=== PATIENT | female | born 1945 | race Caucasian/White ===

== ENCOUNTER 2017-12-15 15:53 | Outpatient (CLI) | payer MEDICARE | END 2017-12-15 15:54 | disposition home or self-care (01) | LOC: BICMAMMO 15:53 | PROVIDERS: ATTEND Family Medicine | DX: Z12.31 Encounter for screening mammogram for malignant neoplasm of breast (principal); Z85.528 Personal history of other malignant neoplasm of kidney | CPT/HCPCS: 77063; 77067 ==

== ENCOUNTER 2018-07-28 13:38 | Outpatient (CLI) | payer MEDICARE ==
--- NOTE | 2018-07-28 15:05 | RAD ---
TWO VIEWS OF THE CHEST 07/28/18 COMPARISON: 06/14/17 HISTORY: Short of breath. FINDINGS: Numerous postoperative clips are noted in the upper abdomen, stable. Stable lateral left sided old ri b fractures are present. There is no pneumothorax or pleural fluid and no focal consolidation or alve olar edema. There is a small stable nodule in the lateral aspect of the right lung measuring in the 5 -6 mm range, stable. IMPRESSION: Stable appearance of the chest - no acute findings. POS: [facility]
== END 2018-07-28 13:39 | disposition home or self-care (01) ==
LOC: RAD 13:38
PROVIDERS: ATTEND Internal Medicine Critical Care Medicine
DX: R06.00 Dyspnea, unspecified (principal)
CPT/HCPCS: 71045

== ENCOUNTER 2018-12-10 11:30 | Emergency (ER) | payer MEDICARE ==
[2018-12-10 12:20] LABS: #Basophils 0.1 thou/uL (0.0-0.2); #Eosinphils 0.2 thou/uL (0.0-0.7); #Lymphocytes 1.3 thou/uL (1.20-3.40); #Monocytes 0.8 thou/uL (0.11-0.59); %Basophils 1.5 % (0.0-1.0); %Eosinophils 3.2 % (0.0-10.0); %Lymphocytes 24.3 % (21.0-51.0); %Monocytes 14.9 % (0.0-10.0); Mean Corpuscular HGB CONC 33.1 g/dL (32.0-36.0); Mean Corpuscular Hemoglobin 31.9 pg (27.0-31.0); Mean Corpuscular Volume 96.3 fL (78.0-98.0); Mean Platelet Volume 9.1 fL (7.4-10.4); Platelet Count 177 thou/uL (130-400); Red Blood Cell (RBC) Count 4.39 mill/uL (4.20-5.40); White Blood Cell (WBC) Count 5.3 thou/uL (4.8-10.8)
[2018-12-10 12:41] LABS: ALT (SGPT) 21 U/L (8-55); AST (SGOT) 43 U/L (5-34); Albumin 3.7 g/dL (3.4-4.8); Alkaline Phosphatase 72 U/L (40-150); Anion Gap 12 mmol/L (10-20); BUN (Urea Nitrogen) 14 mg/dL (9.8-20.1); Bilirubin, Total 0.4 mg/dL (0.2-1.2); Calc. Creatinine Clearance 0 mL/min (70-130); Calcium 9.2 mg/dL (7.8-10.44); Carbon Dioxide 27 mmol/L (23-31); Chloride 100 mmol/L (98-107); Estimated GFR-MDRD 33; Glucose 97 mg/dL (83-110); Potassium 3.3 mmol/L (3.5-5.1); Protein, Total 6.7 g/dL (6.0-8.3); Sodium 136 mmol/L (136-145)
[2018-12-10] MEDS ORDERED: methylPREDNISolone Sod Succ/PF 125 MG/2 ML VIAL ONE (13:06)
[2018-12-10] MEDS ORDERED: Pot Chloride/Pot Bicarb/Cit Ac 25 mEq Effervescent Tablet ONE (13:57)
[2018-12-10] MEDS ORDERED: Potassium Bicarbonate/Cit Ac 25 MEQ TAB PO SCH (14:00)
[2018-12-10] MEDS ORDERED: methylPREDNISolone Sod Succ/PF 125 MG/2 ML VIAL IVP SCH (14:00)
--- NOTE | 2018-12-10 14:41 | RAD ---
CHEST 2 VIEWS: Date: 12/10/18 HISTORY: Cough. COMPARISON: 06/14/17 study. FINDINGS: Heart size is upper limits of normal. Aorta is tortuous. The lungs are clear of infiltrates. Old left rib fractures are present. There are arthritic changes of the spine. IMPRESSION: No active intrathoracic disease. Stable chest. POS: [facility]
== END 2018-12-10 14:42 | disposition home or self-care (01) ==
LOC: ERS 11:30
DX: R05 Cough (principal); I10 Essential (primary) hypertension; F41.9 Anxiety disorder, unspecified
CPT/HCPCS: 36415; 71046; 80053; 83880; 84484; 85025; 87804; 93005; 94644; 96374; J2930; J7620

== ENCOUNTER 2019-04-04 11:49 | Outpatient (CLI) | payer MEDICARE ==
--- NOTE | 2019-04-04 15:13 | MMO ---
Bilateral MAMMO Bilat Screen [facility]. CLINICAL HISTORY: Patient is 74 years old and is seen for screening. The patient has no family history of breast cancer. The patient has a history of kidney cancer in 1977. The patient has a history of right Excisional Biopsy in ?1988 - benign. VIEWS: The views performed were: bilateral craniocaudal with tomosynthesis and bilateral mediolateral oblique with tomosynthesis. FILMS COMPARED: The present examination has been compared to prior imaging studies performed at [facility] on 06/20/2014 and 12/15/2017, and at [facility] on 02/24/2012 and 03/22/2013. MAMMOGRAM FINDINGS: There are scattered fibroglandular densities. There are no suspicious masses, calcifications or areas of architectural distortion. There are benign appearing calcifications in both breasts. There are no suspicious masses, suspicious calcifications, or new areas of architectural distortion. IMPRESSION: THERE IS NO MAMMOGRAPHIC EVIDENCE OF MALIGNANCY. A ROUTINE FOLLOW-UP MAMMOGRAM IN 1 YEAR IS RECOMMENDED. THE RESULTS OF THIS EXAM WERE SENT TO THE PATIENT. ACR BI-RADS Category 2 - Benign finding MAMMOGRAPHY NOTE: 1. A negative mammogram report should not delay a biopsy if a dominant of clinically suspicious mass is present. 2. Approximately 10% to 15% of breast cancers are not detected by mammography. 3. Adenosis and dense breasts may obscure an underlying neoplasm.
== END 2019-04-04 11:50 | disposition home or self-care (01) ==
LOC: BICMAMMO 11:49
PROVIDERS: ATTEND Family Medicine
DX: Z12.31 Encounter for screening mammogram for malignant neoplasm of breast (principal); Z85.528 Personal history of other malignant neoplasm of kidney
CPT/HCPCS: 77063; 77067

== ENCOUNTER 2020-01-07 12:41 | Emergency (ER) | payer MEDICARE ==
[2020-01-07 13:06] LABS: #Basophils 0.1 thou/uL (0.0-0.2); #Eosinphils 0.4 thou/uL (0.0-0.7); #Lymphocytes 3.7 thou/uL (1.20-3.40); #Monocytes 0.8 thou/uL (0.11-0.59); #Neutrophils 5.4 thou/uL (1.40-6.50); %Eosinophils 4.2 % (0.0-10.0); %Lymphocytes 35.9 % (21.0-51.0); %Monocytes 7.4 % (0.0-10.0); %Neutrophils 51.6 % (42.0-75.0); Mean Corpuscular HGB CONC 34.4 g/dL (32.0-36.0); Mean Corpuscular Hemoglobin 32.1 pg (27.0-31.0); Mean Corpuscular Volume 93.4 fL (78.0-98.0); Mean Platelet Volume 9.8 fL (7.4-10.4); Platelet Count 214 thou/uL (130-400); RBC Distribution Width 12.5 % (11.5-14.5); Red Blood Cell (RBC) Count 4.06 mill/uL (4.20-5.40); White Blood Cell (WBC) Count 10.4 thou/uL (4.8-10.8)
[2020-01-07 13:19] LABS: Bilirubin Negative (Negative); Blood, Urine Negative (Negative); Glucose, Urine (Dipstick) Negative (Negative); Leukocyte Trace (Negative); Nitrite Negative (Negative); Protein, Urine (Dipstick) Negative (Neg-Trace); Urobilinogen 0.2 mg/dL (Less than 2)
[2020-01-07 13:20] LABS: Bacteria/HPF 3+ HPF (None Seen); Clarity Clear (Clear); RBC/HPF 0-3 HPF (0-3)
[2020-01-07 13:32] LABS: ALT (SGPT) 8 U/L (8-55); AST (SGOT) 14 U/L (5-34); Alkaline Phosphatase 88 U/L (40-110); Anion Gap 14 mmol/L (10-20); BUN (Urea Nitrogen) 22 mg/dL (9.8-20.1); Bilirubin, Total 0.3 mg/dL (0.2-1.2); Calc. Creatinine Clearance 0 mL/min (70-130); Calcium 9.1 mg/dL (7.8-10.44); Carbon Dioxide 29 mmol/L (23-31); Chloride 98 mmol/L (98-107); Estimated GFR-MDRD 34; Globulin 2.8 g/dL (2.4-3.5); Glucose 98 mg/dL (83-110); Lipase 28 U/L (8-78); Potassium 3.1 mmol/L (3.5-5.1); Protein, Total 6.8 g/dL (6.0-8.3); Sodium 138 mmol/L (136-145)
[2020-01-07 13:46] LABS: CK (CPK) 75 U/L (29-168)
--- NOTE | 2020-01-07 13:52 | RAD ---
Portable chest: HISTORY: Dyspnea COMPARISON: 07/28/2018 FINDINGS: Lung davis are clear. Heart and mediastinum appear unremarkable. Vascularity is normal. Visualized osseous structures unremarkable. Old left-sided rib fractures again noted. IMPRESSION: No acute finding
== END 2020-01-07 15:51 | disposition home or self-care (01) ==
LOC: ERS 12:41
DX: E87.6 Hypokalemia (principal); I10 Essential (primary) hypertension; M19.90 Unspecified osteoarthritis, unspecified site; Z79.899 Other long term (current) drug therapy
CPT/HCPCS: 36415; 71045; 80053; 81003; 81015; 82550; 83690; 83880; 84484; 85025; 93005; 94640; J7620

== ENCOUNTER 2020-10-17 13:55 | Outpatient (CLI) | payer MEDICARE ==
--- NOTE | 2020-10-17 16:04 | MMO ---
Bilateral MAMMO Bilat Screen [facility]. CLINICAL HISTORY: Patient is 75 years old and is seen for screening. The patient has no family history of breast cancer. The patient has a history of kidney cancer in 1977. The patient has a history of right Excisional Biopsy in ?1988 - benign. VIEWS: The views performed were: right mediolateral oblique. FILMS COMPARED: The present examination has been compared to prior imaging studies performed at [facility] on 06/20/2014, 12/15/2017 and 04/04/2019, and at [facility] on 03/22/2013. This study has been interpreted with the assistance of computer-aided detection. MAMMOGRAM FINDINGS: There are scattered fibroglandular densities. Finding 1: There are stable benign appearing calcifications seen in both breasts. Finding 2: There are stable benign appearing densities seen in both breasts. There are no suspicious masses, suspicious calcifications, or new areas of architectural distortion. IMPRESSION: THERE IS NO MAMMOGRAPHIC EVIDENCE OF MALIGNANCY. A ROUTINE FOLLOW-UP MAMMOGRAM IN 1 YEAR IS RECOMMENDED. THE RESULTS OF THIS EXAM WERE SENT TO THE PATIENT. ACR BI-RADS Category 2 - Benign finding MAMMOGRAPHY NOTE: 1. A negative mammogram report should not delay a biopsy if a dominant of clinically suspicious mass is present. 2. Approximately 10% to 15% of breast cancers are not detected by mammography. 3. Adenosis and dense breasts may obscure an underlying neoplasm. Reported by: MARY HARGROVE MD Electonically Signed: [id number]
== END 2020-10-17 13:56 | disposition home or self-care (01) ==
LOC: BICMAMMO 13:55
PROVIDERS: ATTEND Family Medicine
DX: Z12.31 Encounter for screening mammogram for malignant neoplasm of breast (principal); Z91.89 Other specified personal risk factors, not elsewhere classified; Z85.528 Personal history of other malignant neoplasm of kidney
CPT/HCPCS: 77063; 77067

== ENCOUNTER 2022-01-03 18:47 | Emergency (ER) | payer MEDICARE ==
[2022-01-03] MEDS ORDERED: Ketorolac Tromethamine 30 MG/ML VIAL ONE (20:04)
[2022-01-03] MEDS ORDERED: Dexamethasone 4 mg/ml Vial ONE (20:04)
[2022-01-03] MEDS ORDERED: Fentanyl 100 MCG/2 ML VIAL ONE (20:51)
== END 2022-01-03 21:34 | disposition home or self-care (01) ==
LOC: ERS 18:47
DX: M54.50 Low back pain, unspecified (principal); G89.29 Other chronic pain; I10 Essential (primary) hypertension; M19.90 Unspecified osteoarthritis, unspecified site; G25.81 Restless legs syndrome; E78.00 Pure hypercholesterolemia, unspecified; Z85.528 Personal history of other malignant neoplasm of kidney
CPT/HCPCS: 96374; 96375; J1100; J1885; J3010

== ENCOUNTER 2022-09-24 10:49 | Outpatient (CLI) | payer MEDICARE | END 2022-09-24 10:50 | disposition home or self-care (01) | LOC: BICMAMMO 10:49 | PROVIDERS: ATTEND Family Medicine | DX: Z12.31 Encounter for screening mammogram for malignant neoplasm of breast (principal); Z91.89 Other specified personal risk factors, not elsewhere classified; Z85.528 Personal history of other malignant neoplasm of kidney; Z98.890 Other specified postprocedural states | CPT/HCPCS: 77063; 77067 ==

== ENCOUNTER 2023-01-15 16:40 | Observation (INO) | payer MEDICARE ==
[2023-01-15] MEDS ORDERED: Ipratropium/Albuterol 3 ML NEB ONE ×2 (20:29→22:03)
[2023-01-15 20:35] LABS: #Basophils 0.1 thou/uL (0.0-0.2); #Eosinphils 0.7 thou/uL (0.0-0.7); #Lymphocytes 3.7 thou/uL (1.20-3.40); #Monocytes 0.7 thou/uL (0.11-0.59); #Neutrophils 3.9 thou/uL (1.40-6.50); %Basophils 0.8 % (0.0-1.0); %Eosinophils 7.5 % (0.0-10.0); %Lymphocytes 40.4 % (21.0-51.0); %Monocytes 8.1 % (0.0-10.0); %Neutrophils 43.2 % (42.0-75.0); Hemoglobin 12.9 g/dL (12.0-16.0); Mean Corpuscular HGB CONC 32.3 g/dL (32.0-36.0); Mean Platelet Volume 9.5 fL (7.4-10.4); Platelet Count 207 10x3/uL (130-400); RBC Distribution Width 12.4 % (11.5-14.5); Red Blood Cell (RBC) Count 4.03 mill/uL (4.20-5.40); White Blood Cell (WBC) Count 9.1 10x3/uL (4.8-10.8)
[2023-01-15 20:57] LABS: ALT (SGPT) 7 U/L (8-55); AST (SGOT) 14 U/L (5-34); Albumin 3.8 g/dL (3.4-4.8); Alkaline Phosphatase 65 U/L (40-110); Anion Gap 13 mmol/L (10-20); BUN (Urea Nitrogen) 20 mg/dL (9.8-20.1); Bilirubin, Total 0.3 mg/dL (0.2-1.2); Calc. Creatinine Clearance 0 mL/min (70-130); Calcium 8.6 mg/dL (7.8-10.44); Carbon Dioxide 26 mmol/L (23-31); Chloride 103 mmol/L (98-107); Estimated GFR 33; Globulin 2.6 g/dL (2.4-3.5); Glucose 100 mg/dL (83-110); Potassium 3.8 mmol/L (3.5-5.1); Protein, Total 6.4 g/dL (5.8-8.1); Sodium 138 mmol/L (136-145)
[2023-01-15] MEDS ORDERED: Aspirin Chewable 81 MG TAB ONE (21:36)
[2023-01-15] MEDS ORDERED: Ondansetron ODT 4 MG TAB SL PRN (21:45)
[2023-01-15] MEDS ORDERED: Ondansetron PF 4 MG/2 ML Vial IVP PRN (21:45)
[2023-01-15] MEDS ORDERED: Ipratropium/Albuterol 3 ML NEB EZPAP PRN (21:57)
[2023-01-15] MEDS ORDERED: methylPREDNISolone Sod Succ/PF 125 MG/2 ML VIAL ONE (22:03)
[2023-01-15] MEDS ORDERED: clonazePAM 0.5 MG TAB PO SCH (23:45)
[2023-01-16] MEDS: Acetaminophen 325 MG TAB PO PRN ×2 (00:05→06:46)
[2023-01-16] MEDS: methylPREDNISolone Sod Succ 40 MG VIAL IVP SCH ×3 (00:06→12:24)
[2023-01-16 00:38] VITALS: BMI 30.8
[2023-01-16 01:16] LABS: Troponin I Less than 0.010 ng/mL (< 0.028)
[2023-01-16 01:16] LABS: SARS-CoV-2 NAA Rapid Test Not Detected (NotDetected)
[2023-01-16] MEDS: Ipratropium/Albuterol 3 ML NEB NEB SCH ×5 (02:41→15:18)
[2023-01-16] MEDS ORDERED: Benzonatate 100 MG CAP PO PRN (02:44)
[2023-01-16 06:02] LABS: #Lymphocytes 0.7 thou/uL (1.20-3.40); #Monocytes 0.1 thou/uL (0.11-0.59); #Neutrophils 5.8 thou/uL (1.40-6.50); %Basophils 0.5 % (0.0-1.0); %Eosinophils 0.1 % (0.0-10.0); %Lymphocytes 10.1 % (21.0-51.0); %Monocytes 0.9 % (0.0-10.0); %Neutrophils 88.4 % (42.0-75.0); Hemoglobin 12.7 g/dL (12.0-16.0); Mean Corpuscular HGB CONC 32.7 g/dL (32.0-36.0); Mean Corpuscular Hemoglobin 32.1 pg (27.0-31.0); Mean Corpuscular Volume 98.2 fl (78.0-98.0); Mean Platelet Volume 10.2 fL (7.4-10.4); Platelet Count 198 10x3/uL (130-400); RBC Distribution Width 12.4 % (11.5-14.5); Red Blood Cell (RBC) Count 3.94 mill/uL (4.20-5.40); White Blood Cell (WBC) Count 6.6 10x3/uL (4.8-10.8)
[2023-01-16 06:49] LABS: Anion Gap 15 mmol/L (10-20); BUN (Urea Nitrogen) 23 mg/dL (9.8-20.1); Calc. Creatinine Clearance 36 mL/min (70-130); Calcium 9.2 mg/dL (7.8-10.44); Carbon Dioxide 24 mmol/L (23-31); Chloride 103 mmol/L (98-107); Estimated GFR 36; Glucose 152 mg/dL (83-110); Magnesium 1.7 mg/dL (1.6-2.6); Potassium 3.6 mmol/L (3.5-5.1); Sodium 138 mmol/L (136-145)
[2023-01-16 06:51] LABS: Troponin I Less than 0.010 ng/mL (< 0.028)
[2023-01-16 16:14] VITALS: BP 135/74; TEMP 98.2
[2023-01-16] MEDS ORDERED: clonazePAM 1 MG TAB PO SCH (21:00)
[2023-01-17] MEDS ORDERED: Furosemide 20 MG TAB PO SCH (09:00)
[2023-01-17] MEDS ORDERED: Hydrochlorothiazide 25 MG TAB PO SCH (09:00)
== END 2023-01-16 16:12 | disposition home or self-care (01) ==
LOC: ERS 16:40 → 2SW 21:37
PROVIDERS: ADMIT Family Medicine; ATTEND Family Medicine
DX: J45.901 Unspecified asthma with (acute) exacerbation (principal); I12.9 Hypertensive chronic kidney disease with stage 1 through stage 4 chronic kidney disease, or unspecified chronic kidney disease; N18.9 Chronic kidney disease, unspecified; G25.81 Restless legs syndrome; M79.7 Fibromyalgia; E78.00 Pure hypercholesterolemia, unspecified; Z85.528 Personal history of other malignant neoplasm of kidney; Z77.22 Contact with and (suspected) exposure to environmental tobacco smoke (acute) (chronic); Z79.52 Long term (current) use of systemic steroids; Z79.890 Hormone replacement therapy; Z79.899 Other long term (current) drug therapy; Z88.2 Allergy status to sulfonamides; Z88.5 Allergy status to narcotic agent; Z20.822 Contact with and (suspected) exposure to COVID-19
CPT/HCPCS: 71046; 80048; 80053; 83735; 83880; 84484 ×3; 85025 ×2; 93005; 94640 ×2; 96374; 96376; 99285; G0378 ×2; U0002; 36415; J2920; J2930; J7620

== ENCOUNTER 2023-08-17 09:01 | Outpatient (CLI) | payer MEDICARE | END 2023-08-17 09:02 | disposition home or self-care (01) | LOC: SCSMRI 09:01 | PROVIDERS: ATTEND Physical Medicine & Rehabilitation | DX: M99.33 Osseous stenosis of neural canal of lumbar region (principal); M47.816 Spondylosis without myelopathy or radiculopathy, lumbar region; M47.815 Spondylosis without myelopathy or radiculopathy, thoracolumbar region; M48.061 Spinal stenosis, lumbar region without neurogenic claudication; Z98.890 Other specified postprocedural states | CPT/HCPCS: 72148 ==

== ENCOUNTER 2023-11-29 17:37 | Emergency (ER) | payer MEDICARE ==
[~2023-11-29 17:37] MED LIST: Iopamidol-370 76% 500 ML MDV (1 ML CHARGE) ONE
[2023-11-29] MEDS ORDERED: methylPREDNISolone Sod Succ/PF 125 MG/2 ML VIAL ONE (18:44)
[2023-11-29 19:41] LABS: #Monocytes 0.4 thou/uL (0.11-0.59); #Neutrophils 7.3 thou/uL (1.40-6.50); %Basophils 0.2 % (0.0-1.0); %Lymphocytes 17.7 % (21.0-51.0); %Neutrophils 76.7 % (42.0-75.0); Hematocrit 41.1 % (36.0-47.0); Hemoglobin 13.5 g/dL (12.0-16.0); Mean Corpuscular HGB CONC 32.8 g/dL (32.0-36.0); Mean Corpuscular Hemoglobin 32.8 pg (27.0-31.0); Mean Platelet Volume 11.5 fL (7.4-10.4); Platelet Count 268 10x3/uL (130-400); RBC Distribution Width 13.2 % (11.5-14.5); Red Blood Cell (RBC) Count 4.11 mill/uL (4.20-5.40); White Blood Cell (WBC) Count 9.5 10x3/uL (4.8-10.8)
[2023-11-29 20:06] LABS: ALT (SGPT) 9 U/L (8-55); AST (SGOT) 13 U/L (5-34); Alkaline Phosphatase 56 U/L (40-110); Anion Gap 14 mmol/L (10-20); BUN (Urea Nitrogen) 18 mg/dL (9.8-20.1); Bilirubin, Total 0.3 mg/dL (0.2-1.2); Calc. Creatinine Clearance 0 mL/min (70-130); Calcium 9.2 mg/dL (7.8-10.44); Carbon Dioxide 25 mmol/L (23-31); Chloride 103 mmol/L (98-107); Estimated GFR 36; Globulin 3.1 g/dL (2.4-3.5); Glucose 168 mg/dL (83-110); Potassium 3.6 mmol/L (3.5-5.1); Protein, Total 7.1 g/dL (5.8-8.1); Sodium 138 mmol/L (136-145)
[2023-11-29 20:14] LABS: Troponin I 0.019 ng/mL (< 0.028)
[2023-11-29] MEDS ORDERED: Ipratropium Bromide 2.5 ml Neb ONE (22:12)
[2023-11-29] MEDS ORDERED: Albuterol 2.5 MG (3 mL) NEB ONE (22:12)
== END 2023-11-29 23:44 | disposition home or self-care (01) ==
LOC: ERS 17:37
DX: J45.901 Unspecified asthma with (acute) exacerbation (principal); J18.9 Pneumonia, unspecified organism; I10 Essential (primary) hypertension
CPT/HCPCS: 36415; 71045; 71275; 80053; 83880; 84484; 85025; 85379; 93005; 94760; 96374; J2930; J7611; Q9967

== ENCOUNTER 2024-03-17 11:32 | Emergency (ER) | payer MEDICARE, OTHER ==
[2024-03-17] MEDS ORDERED: predniSONE 20 MG TAB ONE (12:09)
[2024-03-17] MEDS ORDERED: Ipratropium/Albuterol 3 ML NEB ONE (12:19)
== END 2024-03-17 12:54 | disposition home or self-care (01) ==
LOC: ERS 11:32
DX: J45.901 Unspecified asthma with (acute) exacerbation (principal); I10 Essential (primary) hypertension
CPT/HCPCS: 71046; 94640; J7512; J7620

== ENCOUNTER 2024-06-06 10:38 | Emergency (ER) | payer MEDICARE ==
[2024-06-06] MEDS ORDERED: predniSONE 20 MG TAB ONE (11:26)
[2024-06-06 11:28] LABS: #Basophils 0.07 10x3/uL (0.0-0.2); %Basophils 0.6 % (0.0-1.0); %Eosinophils 7.1 % (0.0-10.0); %Lymphocytes 33.1 % (21.0-51.0); %Monocytes 8.9 % (0.0-10.0); Hematocrit 45.7 % (36.0-47.0); Hemoglobin 14.8 g/dL (12.0-16.0); Mean Corpuscular HGB CONC 32.4 g/dL (32.0-36.0); Mean Corpuscular Hemoglobin 32.2 pg (27.0-31.0); Mean Corpuscular Volume 99.3 fL (78.0-98.0); Mean Platelet Volume 11.2 fL (7.4-10.4); Platelet Count 236 10x3/uL (130-400); RBC Distribution Width 12.9 % (11.5-14.5)
[2024-06-06] MEDS ORDERED: Ipratropium/Albuterol 3 ML NEB ONE (11:32)
[2024-06-06 11:35] LABS: Bilirubin Negative (Negative); Blood, Urine 1+ (Negative); CAUTI Indications for Culture Dysuria,urgency,freq; Clarity Extra Turbid (Clear); Glucose, Urine (Dipstick) Normal (Negative); Ketone, Urine Negative (Negative); Leukocyte 500 Leu/uL (Negative); Nitrite Negative (Negative); Protein, Urine (Dipstick) 30 mg/dL (Neg-Trace); Specific Gravity, Urine 1.022 (1.002-1.036); Urobilinogen 3 mg/dL (Less than 2); WBC/HPF Greater than 50 HPF (0-3)
[2024-06-06 11:36] LABS: Bacteria/HPF 1+ HPF (None Seen)
[2024-06-06 11:37] LABS: Urine Culture Reflex Yes Yes
[2024-06-06 11:53] LABS: ALT (SGPT) 10 U/L (8-55); AST (SGOT) 18 U/L (5-34); Albumin 3.6 g/dL (3.4-4.8); Alkaline Phosphatase 61 U/L (40-110); Anion Gap 15 mmol/L (10-20); BUN (Urea Nitrogen) 21 mg/dL (9.8-20.1); Bilirubin, Total 0.4 mg/dL (0.2-1.2); Calc. Creatinine Clearance 0 mL/min (70-130); Calcium 9.6 mg/dL (7.8-10.44); Carbon Dioxide 27 mmol/L (23-31); Chloride 99 mmol/L (98-107); Estimated GFR 33; Globulin 4.1 g/dL (2.4-3.5); Glucose 102 mg/dL (83-110); Potassium 3.2 mmol/L (3.5-5.1); Protein, Total 7.7 g/dL (5.8-8.1); Sodium 138 mmol/L (136-145)
[2024-06-06] MEDS ORDERED: cefTRIAXone (ROCEPHIN) 1 GM VIAL ONE (12:27)
[2024-06-06] MEDS ORDERED: Sodium Chloride 0.9% 100 ML ONE (12:27)
[2024-06-06] MEDS ORDERED: Lidocaine 4% Patch TD SCH (12:45)
[2024-06-06] MEDS ORDERED: Transdermal Patch Removal TOP SCH (21:00)
== END 2024-06-06 14:28 | disposition home or self-care (01) ==
LOC: ERS 10:38
DX: N39.0 Urinary tract infection, site not specified (principal); G25.81 Restless legs syndrome; R06.02 Shortness of breath; I10 Essential (primary) hypertension; Z79.899 Other long term (current) drug therapy
CPT/HCPCS: 71046; 80053; 81001; 83605; 85025; 87086; 94640; 94760; J0696; 36415; 96365; J7512; J7620